=== PATIENT | male | born 1945 | race Two or more races ===

== ENCOUNTER → 2016-10-10 | Outpatient (CLI) | payer OTHER ==
[~2016-10-10] MED LIST: GADOBUTROL 10 ML VIAL IVP ONE
--- NOTE | 2016-10-11 11:38 | MR ---
MRI Abdomen Without and With Contrast Indication: Follow up cystic pancreatic lesion and "left renal mass." Technique: Axial single shot fast spin echo, axial and coronal 2-D T2-weighted FIESTA, axial T1 dual echo, pre- and postcontrast dynamic T1 fat-suppressed LAVA imaging, and diffusion-weighted imaging i n the axial plane. 10 mL of Gadavist were uneventfully intravenously administered. Comparison: CT abdomen and pelvis, September 25, 2016. Findings: The pancreatic body and tail are severely atrophic. A large multiloculated cystic lesion, c ontiguous with the dilated main pancreatic duct, fills and replaces the majority of the pancreatic kelvin dy and measures roughly 8 cm medial to lateral x 3.4 cm AP x 4.5 cm craniocaudal. The sequential post contrast imaging reveals numerous thin internal septations within the cystic lesion and two enhancing mural nodules. One mural nodule along the anterior-inferior aspect of the cystic lesion on image 65 of series 1403 measures 1.5 x 1.4 cm. A second enhancing lesion superiorly near the lesser curvature of the stomach on image 75 of series 1403 measures 1.9 x 2.0 cm. The dilated pancreatic duct tapers t o a normal caliber as it courses into the pancreatic neck. A 2 cm segment of the pancreatic duct in t he tail is dilated up to 15 mm. No surrounding edema, free fluid, or desmoplastic reaction. No enlarged regional lymph nodes. No invo lvement of the superior mesenteric artery and veins. The portal venous system is patent. No liver or bone lesions. The exophytic 2.7 x 2.1 cm lesion emanating off the inferomedial pole of the left kidney is intermedi ately bright on T2, minimally hyperintense to background kidney on T1, has an Icelandic ink hemosiderin ring on the exi-tb-[id number] T1, and does not enhance in the postcontrast dynamic imaging indicative of a proteinaceous/hemorrhagic cyst. No enhancing renal lesion. The kidneys are otherwise normal. No hyd ronephrosis. The liver has normal signal and morphology. Mild geographic hepatic steatosis is present throughout t he right and left lobe evidenced by decreased signal on the oim-en-[id number] T1 sequence. No underlying c irrhosis or focal liver lesion. The gallbladder is normal. Common bile duct is normal caliber (2 to 3 mm) and normally tapers to the major papilla. No gallstones or common bile duct stones. The abdomina l aorta is normal caliber. No pleural effusion. The heart is minimally enlarged. Small hiatal hernia. Impression: 1. 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 Recommend surgical consultation and GI consultation for potentia l endoscopic ultrasound and aspiration. 2. No evidence of metastatic disease. 3. Benign proteinaceous/hemorrhagic cyst emanating off left kidney. Comment: The findings and recommendations were discussed with Dr. Mott, the covering physician for Dr. Reena Clinton, on October 11, 2016. I reviewed the case with Dr. Yaya Partida who agrees w ith the impression and recommendations. e:marco antonio
== END ==
LOC: FIMAGING 09:22
PROVIDERS: ATTEND Family Medicine
DX: K86.89 Other specified diseases of pancreas (principal); K86.2 Cyst of pancreas; N28.1 Cyst of kidney, acquired
CPT/HCPCS: 74183; A9585

== ENCOUNTER 2016-10-29 10:19 | Day surgery (SDC) | payer OTHER ==
[2016-10-29] MEDS ORDERED: LIDOCAINE 1% 5 ML SDV ONE (10:49)
[2016-10-29 11:20] LABS: INR 1.06 (0.83-1.16); PROTIME(PATIENT) 13.7 SEC (12.0-15.0)
[2016-10-29] MEDS ORDERED: LIDOCAINE 1% 5 ML SDV ID PRN (11:22)
[2016-10-29] MEDS ORDERED: LR 1,000 ML IV ONE (11:22)
[2016-10-29] MEDS ORDERED: fentaNYL 100 MCG/2 ML INJ ONE (12:01)
[2016-10-29] MEDS ORDERED: MIDAZOLAM 2 MG/2 ML VIAL ONE (12:01)
[2016-10-29] MEDS ORDERED: PROPOFOL/EMULSION 500 MG/50 ML BOTTLE IV ONE (12:01)
[2016-10-29] MEDS ORDERED: levOFLOXACIN 500 MG/DEXTROSE/100 ML BAG IV ONE (12:07)
[2016-10-29] MEDS ORDERED: levOFLOXACIN 500 MG/DEXTROSE 100 ML IV ONE (12:30)
[2016-10-29] MEDS ORDERED: PROPOFOL 200 MG/20 ML VIAL ONE (12:49)
--- NOTE | 2016-10-29 14:07 | GPN ---
[f rep st] PROCEDURE NOTE PREPROCEDURE DIAGNOSIS: Pancreatic body cystic lesion suspicious for main duct intraductal papillary mucinous neoplasm. POSTPROCEDURE DIAGNOSIS: Cystic mass of the pancreatic body. MEDICATIONS: Monitored anesthesia care. Levofloxacin 500 mg IV given during the procedure. NAME OF PROCEDURES: 1. Esophagogastroduodenoscopy with biopsy. 2. Endoscopic ultrasound, including the esophagus, stomach, and duodenum with fine-needle aspiration . INDICATIONS: The patient is a 71-year-old gentleman with an incidental finding of a large cystic henderson creatic body mass. On MRI, the mass measures 8 cm x 3.4 cm x 4.5 cm. There is dilation of the duct in the pancreatic body and pancreatic tail. The findings are suspicious for a main duct IPMN. There were 2 mural nodules which were seen on imaging, 1 measuring 1.5 x 1.4 cm and the second measuring 1 .9 x 2 cm. The patient was referred for endoscopic ultrasound fine-needle aspiration. The patient i s on Coumadin, which he held for the procedure. He was bridged with low-molecular weight heparin, wh ich he stopped 24 hours before the procedure. DESCRIPTION OF PROCEDURE: The end-viewing endoscope was inserted into the esophagus, into stomach, d own to the second portion of the duodenum. The esophagus appears normal. The GE junction is located at 40 cm from the incisors. There was no evidence of esophagitis, Robbins's, or varices. The stoma ch shows mild antral gastritis. Biopsies were taken using cold biopsy forceps to evaluate for Helico bacter pylori. The duodenum and second portion were normal. Next, the curvilinear echo endoscope was inserted into the esophagus, into the stomach, down to the s econd portion of the duodenum. The pancreatic head appears normal. The pancreatic duct is not dilat ed in the pancreatic head. Within the pancreatic neck, the pancreatic duct becomes dilated and is as sociated with a large cystic mass with multiple septations in the pancreatic body. There is internal debris consistent with mucin within the cyst. There is a possible mural nodule measuring up to 2 cm . The pancreatic duct remains dilated in the pancreatic body and tail. Next, a 22-gauge FNA needle was inserted into the pancreatic cystic lesion 3 times. The third insert ion resulted in fluid aspiration, which was sent for CEA and amylase. The initial 2 slides were plat ed. The second FNA needle insertion was inserted into the mural nodule versus mucin ball. IMPRESSION: Large cystic lesion of the pancreatic body with multiple septations. The lesion is cont iguous and involves the main pancreatic duct, suggesting either a main pancreatic duct intraductal pa pillary mucinous neoplasm or a mixed type intraductal papillary mucinous neoplasm. Fine needle aspir ation biopsies were taken and the specimens were reported to be adequate. RECOMMENDATIONS: 1. Advance diet as tolerated. 2. Discharge to home with escort. 3. Okay to restart anticoagulation today. 4. Follow up with the final FNA biopsy results. Follow up with the fluid analysis for CEA and amyla se. 5. Follow up with Dr. Bond to discuss surgical resection of this pancreatic cystic lesion, suspicio us for either main duct IPMN or mixed type IPMN with concerning features, including size, dilation of the main duct, and mural nodule. Thank you for allowing me to participate in the care of your patient. Please do not hesitate to call with questions. /[id number]/MODL
[2016-10-30 15:19] LABS: AMYLASE RESULT 149000 U/L (())
== END 2016-10-29 14:55 | disposition home or self-care (01) ==
LOC: FSGY 10:19
PROVIDERS: ATTEND Internal Medicine Gastroenterology
PROC: 0F9G4ZX Drainage of Pancreas, Percutaneous Endoscopic Approach, Diagnostic (ICD-10-PCS; 2016-10-29)
PROC: 0DB68ZX Excision of Stomach, Via Natural or Artificial Opening Endoscopic, Diagnostic (ICD-10-PCS; principal; 2016-10-29 12:00)
DX: K86.9 Disease of pancreas, unspecified (principal); R93.5 Abnormal findings on diagnostic imaging of other abdominal regions, including retroperitoneum; I10 Essential (primary) hypertension; E78.5 Hyperlipidemia, unspecified; N40.0 Benign prostatic hyperplasia without lower urinary tract symptoms; Z86.718 Personal history of other venous thrombosis and embolism; Z79.01 Long term (current) use of anticoagulants; Z96.659 Presence of unspecified artificial knee joint
CPT/HCPCS: J1956; J2250; J2704; J3010

== ENCOUNTER 2017-02-21 09:39 | Emergency (ER) | payer OTHER ==
--- NOTE | 2017-02-21 09:45 | EDPHY ---
H & P Time Seen by Provider: 02/21/17 09:45 HPI/ROS: CHIEF COMPLAINT: right shoulder pain, no history of trauma HISTORY OF PRESENT ILLNESS: 71-year-old male who had onset of mild right shoulder pain at approximately bedtime 10:00 p.m. last night. Cannot recall any particular activity that might have precipitated this injury. Vis-a-vis there was actually any injury nor was there any overuse. It was a really rough night. He could fall asleep. He tried this usually sleep on his stomach. Was not able to do so. Ultimately at around 3:00 a.m. he took a tablet of MS Contin, was able to lay on his left side and propped up his right arm and get some rest. The leftover MS Contin was from his November surgery, see below. In particular he notes that is extremely painful to move he is essentially unable to move due to the pain. Again, there has been no trauma. He holds his right shoulder fixed against the side with his forearm in his lap as the only position of some sort of comfort. It has been a really long year for him. This past September had a biopsy of a pancreatic tumor that shows suspicious cells but no definitive neoplasm. Ultimately he had a pancreatectomy this past November fortunately, biopsy was negative for cancer. However at that surgery she had a cholecystectomy pancreatectomy and splenectomy. 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 His left leg is always bigger than the right leg. He does not have a stockings onset today as a skin really dries out any needs the skin have a rest every a now and then periodic we. He also notes due to the pain in the right shoulder he would never be able to exert delivered to get the stockings on. Pt queried and denies: prior hx of substance abuse family history of substance abuse or current or prior psychiatric history. Right-handed Avocations: Due to his extensive back related problems he really does not do much as far as activities. Sports: Not applicable Work: Retired REVIEW OF SYSTEMS: Constitutional - no fevers or chills Musculoskeletal - no joint or muscle pain. Integument - no rashes [or wounds Neurological - no numbness, tingling, or paresthesias. Smoking Status: Former smoker Physical Exam: General Appearance: Alert, no distress. Afebrile. Well-spoken man however, he is resting his right shoulder in a static position with his forearm across his lap so as to support it. Able to shake hands with a left. Extremities: The right shoulder does not show any soft tissue swelling or deformity or skin changes. There is no erythema or discoloration. Pulses are intact. Cap refill is intact to the upper extremity. There is particular tenderness over the anterior surface of the shoulder along the insertion of the long head of the biceps as well as a bursa. Neurological: NV intact. Skin: Skin is intact. Warm and dry, no rashes. no lymphangitis. . Constitutional: Initial Vital Signs Temperature (C) 36.4 C 02/21/17 09:42 Heart Rate 81 02/21/17 09:42 Respiratory Rate 16 02/21/17 09:42 Blood Pressure 158/94 H 02/21/17 09:42 O2 Sat (%) 93 02/21/17 09:42 O2 Delivery Mode Room Air Allergies/Adverse Reactions: No Known Allergies Allergy (Verified 02/21/17 09:54) Home Medications: Medication Instructions Recorded Lipitor 03/26/16 Warfarin Sodium 03/26/16 HUMULIN R 02/21/17 Lantus 100 UNITS/ML (*) 02/21/17 Lidocaine [Lidoderm] 1 each TP DAILY PRN #10 adh..patch 02/21/17 Pancreatic Enzyme 02/21/17 Medical Decision Making - Diagnostics Imaging Results: Imaging Impressions Shoulder X-Ray 02/21/17 10:03 Impression: 1. Marked degenerative changes at the right glenohumeral joint with intra- articular calcific fragment suspected. 2. Moderate degenerative changes right AC joint. Films reviewed by me as well as the x-ray report. ED Course/Re-evaluation: Unfortunately, this man would best respond to either prednisone, local injection of steroid, or p. o. NSAIDs. However he is on chronic Coumadin therapy which essentially is a relative contraindication for any of those treatments. He does state that he takes Aleve on occasion, more less rarely. I suggested to him that he sticks with Tylenol or his pain medicine. No anti- inflammatories. At this point in time will start with a simple sling and some pain relief with lidocaine derm patch as well as the oxycodone that he has left over, from his prior surgery. Furthermore if he has ongoing continued symptoms that he should see an orthopedist. I suspected the pain is more on the surface rather than the suspicious looking loose bodies in the joint although that is certainly part of the differential. Differential Diagnosis: The differential diagnosis includes but is not limited to: Fracture, Sprain, Strain, Dislocation, Nerve injury, Contusion, tendinitis, bursitis. - Data Points Medications Given: Discontinued Medications Lidocaine (Lidoderm 5%) 1 ea TD EDNOW ONE Stop: 02/21/17 10:37 Last Admin: 02/21/17 10:36 Dose: 1 ea Departure - Departure Disposition: Home, Routine, Self-Care Clinical Impression: Arthritis Bursitis Qualifiers: Bursitis location: shoulder Laterality: right Qualified Code(s): M75.51 - Bursitis of right shoulder Condition: Good Instructions: Shoulder Bursitis (ED) Additional Instructions: Care oxycodone left over from her November surgery for her pain. Also, while on the oxycodone be sure to take Colace 100 mg twice daily. Keeps showed a sling on at all times including bed. Twice daily lean over, and do pot stirring motion with shoulder Apply for lidocaine patches at home, be sure to remove for 12 hours a day No driving while wearing the sling Referrals: Lucrecia Clinton DO [Primary Care Provider] - As per Instructions Ángel Lopez MD [Medical Doctor] - 5-7 days, call for appt. Prescriptions: Lidocaine [Lidoderm] 1 each TP DAILY PRN #10 adh..patch PRN Reason: shoulder pain
[2017-02-21 09:54] VITALS: BP 158/94; PULSE 81; RESP 16; TEMP 97.5; O2SAT 93
[2017-02-21] MEDS ORDERED: LIDOCAINE 5% 1 EA PATCH TD ONE ×2 (10:34→10:36)
== END 2017-02-21 11:21 | disposition home or self-care (01) ==
LOC: CED 09:39
DX: M75.51 Bursitis of right shoulder (principal); M19.90 Unspecified osteoarthritis, unspecified site; Z79.01 Long term (current) use of anticoagulants
CPT/HCPCS: 73030; 99283; A4565

== ENCOUNTER → 2017-10-03 | Outpatient (CLI) | payer OTHER | LOC: CIMAGING 13:50 | PROVIDERS: ATTEND Family Medicine | DX: M25.519 Pain in unspecified shoulder (principal); I10 Essential (primary) hypertension; J44.9 Chronic obstructive pulmonary disease, unspecified; Z79.01 Long term (current) use of anticoagulants | CPT/HCPCS: 71046-PO ==

== ENCOUNTER 2017-12-23 08:31 | Day surgery (SDC) | payer OTHER ==
--- NOTE | 2017-12-23 07:52 | PDHPUP ---
History & Physical Update H&P update statement: This history and physical update is based on an assessment of the patient which was completed after admission or registration (within 24 hours), but prior to the surgery/procedure. H&P update: H&P reviewed & patient examined, no change in patient's condition since H&P completed
[2017-12-23] MEDS ORDERED: ceFAZolin 2 GM/SWFI 2 GM/20 ML SYR IVP ONE (08:52)
[2017-12-23] MEDS ORDERED: LIDOCAINE 1% 2 ML INJ ID PRN (08:58)
--- NOTE | 2017-12-23 09:11 | PDANEPAE ---
ANE History of Present Illness inguinal hernia repair ANE Past Medical History - Cardiovascular History Hx Hypertension: Yes Hx Arrhythmias: No Hx Chest Pain: No Hx Coronary Artery / Peripheral Vascular Disease: Yes Hx CHF / Valvular Disease: No Hx Palpitations: No Cardiovascular History Comment: PVD, HX DVT'S - Pulmonary History Hx COPD: No Hx Asthma/Reactive Airway Disease: No Hx Recent Upper Respiratory Infection: Yes Hx Oxygen in Use at Home: No Hx Sleep Apnea: No Sleep Apnea Screening Result - Last Documented: Negative Pulmonary History Comment: PE 2008 & 2010. DVT. Increased sinus secretions, cough for the last two days. has used inhaler in past when he had colds - Neurologic History Hx Cerebrovascular Accident: No Hx Seizures: No Hx Dementia: No - Endocrine History Hx Diabetes: Yes Hypothyroid: No Hyperthyroid: No Obesity: no Endocrine History Comment: TYPE IIIc, s/p pancreatectomy. Patient prefers blood glucose greater than 100 - Renal History Hx Renal Disorders: No Renal History Comment: BPH - Liver History Hx Hepatic Disorders: No - Neurological & Psychiatric Hx Hx Neurological and Psychiatric Disorders: Yes Neurological / Psychiatric History Comment: CARPAL TUNNEL, LOWER BACK ISSUES - Cancer History Hx Cancer: No - Congenital Disorder History Hx Congenital Disorders: Yes Congenital History Comment: HERNIAS - GI History GERD: no Hx Gastrointestinal Disorders: No Gastrointestinal History Comment: NONE - Other Health History Other Health History: SINUS ISSUES ? ALLERGIES. MISSING TEETH UPPER AND LOWER. chronic leg swellling - Chronic Pain History Chronic Pain: Yes (9 WEEKS OUT FROM SHOULDERRIGHT LOWER BACK) - Surgical History Prior Surgeries: CARPAL TUNNEL R. JES TKAs. KNEE SCOPES. LUMBAR SURG. CATARACTS. S/p cholecystectomy, pancreatectomy, splenectomy. shoulder replacement right. SPLEEN,PANCREAS,GALLBLADDER,POLYPS TO PANCREAS ANE Review of Systems Review of Systems: - Exercise capacity METS (RN): 4 METS ANE Patient History - Allergies Allergies/Adverse Reactions: No Known Allergies Allergy (Verified 12/22/17 16:47) - Home Medications Home Medications: Warfarin Sodium 03/26/16 [Last Taken 12/19/17] HUMULIN R 02/21/17 [Last Taken 12/22/17 22:30 12] Lantus 100 UNITS/ML (*) 02/21/17 [Last Taken 12/23/17 07:45 11units] Creon 12 (*) 12/22/17 [Last Taken 12/22/17 18:00] - Anes Hx Anes Hx: no prior problems - Smoking Hx Smoking Status: Former smoker Marijuana use: No - Alcohol Use Alcohol Use: Other (4 drinks/week) - Family Anes Hx Family Anes Hx: none Family Hx Anesthesia Complications: none ANE Labs/Vital Signs - Labs Result Diagrams: 12/23/17 09:30 - Vital Signs Height: 187.96 cm Weight: 113.398 kg ANE Physical Exam - Airway Neck exam: FROM Mouth exam: poor dentition (upper and lower crowns) - Pulmonary Pulmonary: clear to auscultation - Cardiovascular Cardiovascular: regular rate and rhythym - ASA Status ASA Status: III ANE Anesthesia Plan Anesthesia Plan: general endotracheal anesthesia
[2017-12-23] MEDS ORDERED: BUPIVACAINE 0.5% 30 ML SDV ONE ×2 (09:16→09:57)
[2017-12-23 09:21] VITALS: PULSE 78
[2017-12-23] MEDS ORDERED: MIDAZOLAM 2 MG/2 ML VIAL IVP ONE (09:42)
[2017-12-23] MEDS ORDERED: ROCURONIUM 50 MG/5 ML VIAL ONE (09:45)
[2017-12-23] MEDS ORDERED: fentaNYL 100 MCG/2 ML INJ ONE ×2 (09:45→10:41)
[2017-12-23] MEDS ORDERED: PROPOFOL 200 MG/20 ML VIAL ONE ×3 (09:45→11:06)
[2017-12-23] MEDS ORDERED: DEXAMETHASONE 4 MG/ML VIAL ONE (09:46)
[2017-12-23 09:47] LABS: INR 1.06 (0.83-1.16)
[2017-12-23] MEDS ORDERED: LR 1,000 ML IV ONE (09:57)
[2017-12-23] MEDS ORDERED: ONDANSETRON 4 MG/2 ML VIAL IVP ONE (09:59)
[2017-12-23] MEDS: OXYCODONE/APAP 5/325 TAB PO ONE ×2 (11:04→13:02)
[2017-12-23] MEDS ORDERED: ONDANSETRON 4 MG/2 ML VIAL ONE (11:05)
[2017-12-23] MEDS ORDERED: SUGAMMADEX SODIUM 200 MG/2 ML VIAL IVP ONE (11:18)
[2017-12-23] MEDS ORDERED: oxyCODONE IR 5 MG TAB PO PRN ×2 (11:23→13:04)
[2017-12-23] MEDS ORDERED: fentaNYL 100 MCG/2 ML INJ IVP PRN (11:23)
[2017-12-23] MEDS ORDERED: NALOXONE HCL 0.4 MG/ML INJ IVP PRN ×2 (11:23→13:04)
--- NOTE | 2017-12-23 11:35 | POSTOPPROG ---
Post Op Note Date of Operation: 12/23/17 Surgeon: Td Bond Live In Housekeeper Nanny: Glenda Oden Anesthesiologist: Rey Garnica Anesthesia: GET(General Endotracheal) Pre-op Diagnosis: RIH Post-op Diagnosis: same Procedure: lap RIH repair with mesh and exploration of L inguinal region Findings: pantaloon hernia--direct and indirect defects. No LIH. Inf/Abcess present in the surg proc area at time of surgery?: No EBL: Minimal Complications: none
[2017-12-23] MEDS ORDERED: HYDROCODONE/APAP 5/325 TAB ONE ×2 (12:39→13:33)
[2017-12-23] MEDS: HYDROCODONE/APAP 5/325 TAB PO PRN ×2 (12:41→13:35)
[2017-12-23] MEDS ORDERED: OXYCODONE/APAP 5/325 TAB PO ONE (12:54)
--- NOTE | 2017-12-23 12:56 | POSTANESTH ---
Post Anesthetic Evaluation Cardiovascular Status: Similar to Pre-Op Cond Respiratory Status: Normal, Stable Level of Consciousness/Mental Status: Can Participate in Eval Pain Control: Adequate, Prn Tx Ordered Nausea/Vomiting Control: Adequate, Prn Tx Ordered Complications Possibly Related to Anesthesia: None Noted
[2017-12-23 13:04] VITALS: TEMP 98.1
[2017-12-23 13:45] VITALS: RESP 16
[2017-12-23 13:54] VITALS: O2SAT 92
[2017-12-23 14:25] VITALS: BP 136/78
== END 2017-12-23 14:44 | disposition home or self-care (01) ==
LOC: FSGY 08:31
PROVIDERS: ATTEND Surgery
PROC: 0YU54JZ Supplement Right Inguinal Region with Synthetic Substitute, Percutaneous Endoscopic Approach (ICD-10-PCS; principal; 2017-12-23 10:00)
DX: K40.90 Unilateral inguinal hernia, without obstruction or gangrene, not specified as recurrent (principal); E11.9 Type 2 diabetes mellitus without complications; N40.0 Benign prostatic hyperplasia without lower urinary tract symptoms; I10 Essential (primary) hypertension; I73.9 Peripheral vascular disease, unspecified; E78.5 Hyperlipidemia, unspecified; Z79.01 Long term (current) use of anticoagulants; Z87.440 Personal history of urinary (tract) infections; Z86.711 Personal history of pulmonary embolism; Z86.718 Personal history of other venous thrombosis and embolism; Z96.653 Presence of artificial knee joint, bilateral; Z87.891 Personal history of nicotine dependence; Z82.49 Family history of ischemic heart disease and other diseases of the circulatory system; Z80.42 Family history of malignant neoplasm of prostate; Z90.410 Acquired total absence of pancreas
CPT/HCPCS: C1727; C1781; J0690; J1100; J2250; J2405; J2704; J3010